=== PATIENT | female | born 1935 | race Caucasian/White ===

== ENCOUNTER 2016-06-05 13:57 | Inpatient (IN) | payer MEDICARE, OTHER ==
--- NOTE | ~2016-06-05 | CN ---
Consultation Report [facility] [address] [place]. [address] NAME: CORY ESPARZA : 33 STATUS : ADM IN PAT#: [id number] AGE: 80 ADM/REG DATE : 06/05/16 MR#: [id number] REPORT SERV DATE: 06/08/16 DICTATED BY: MELISSA NELSON DATE: 06/07/16 REPORT STATUS : Draft TRANSCRIBED BY: MODL DATE: 06/07/16 CONSULT REPORT DATE OF CONSULTATION: 06/07/2016 REASON FOR CONSULTATION: Multivessel coronary artery disease. 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 She presented to the emergency room on 06/05/2016 with complaints of dyspnea, that was sudden onset. She has a history of frequent bronchitis and thought this might be an exacerbation of that, but in the emergency room, her BNP was elevated at 1008 and troponin was mildly elevated at 0.01 which later mary kate to 0.3. She was admitted with ccn-MJ-gemuemshf MS, taken for transthoracic echocardiogram, which showed some apical hypokinesis and borderline LV function with ejection fraction estimated around 50% with what appeared to be moderate mitral regurgitation and aortic sclerosis with mild stenosis. The patient was taken for cardiac catheterization yesterday and found to have a very tight distal left main coronary artery stenosis of 80% with a filling defect suspicious for a healed dissection. She has 50% mid LAD stenosis and 40% proximal RCA stenosis with ejection fraction per cardiac catheterization around 45% with no mention of significant valvular disease. She also had a CT angiogram of her chest, which showed aneurysmal dilatation of the ascending aorta measuring up to 4.6 cm. Since her admission, she has been bradycardic with what appears to be compensatory pauses, which caused her heart rate to drop frequently into the high 20s. She is not symptomatic with this and otherwise has no complaints of chest pain or shortness of breath while at rest. PAST MEDICAL HISTORY: Bradycardia, hypertension, rheumatoid arthritis, multiple DVTs, recurrent bronchitis, and AAA. SOCIAL HISTORY: She is , with grown children. She is retired sales representative jewelry. She is fairly inactive secondary to rheumatoid arthritis. She says that, she does not walk well. Denies history of alcohol abuse, use of illicit drugs, or tobacco. FAMILY HISTORY: Reviewed and noncontributory. ALLERGIES: SHE IS ALLERGIC TO LEVOFLOXACIN. HOME MEDICATIONS: Amlodipine 10 mg p.o. daily, aspirin 81 mg p.o. daily, clonidine 0.1 mg p.r.n., Pepcid 20 mg p.o. daily, fentanyl patch 1 patch q.72 hours, Breo Ellipta 100/25 one puff inhaled daily, folic acid 1 mg p.o. daily, furosemide 40 mg p.o. daily, hydrocodone 10/325 one tab p.o. q.6 hours as needed, Plaquenil 400 mg p.o. daily, Atrovent nasal spray two sprays nasally daily, lisinopril 40 mg p.o. daily, Ativan 1 mg p.o. at bedtime, methotrexate 0.6 mL subcu Saturdays, Ditropan 5 mg p.o. daily, Paxil 80 mg p.o. daily, MiraLAX one packet p.o. daily as needed for constipation, Deltasone 5 mg p.o. daily, Risperdal 0.5 mg p.o. at bedtime, and Xarelto 20 mg p.o. daily with supper. Consultation Report [address] [place]. [address] NAME: CORY ESPARZA : 33 STATUS : ADM IN [facility]#: [id number] AGE: 80 ADM/REG DATE : 06/05/16 MR#: [id number] REPORT SERV DATE: 06/08/16 DICTATED BY: MELISSA NELSON DATE: 06/07/16 REPORT STATUS : Draft TRANSCRIBED BY: LUÍS DATE: 06/07/16 REVIEW OF SYSTEMS: A 10-point review of systems was obtained and is negative other than HPI. PHYSICAL EXAMINATION: VITAL SIGNS: From today, temperature 97.9, heart rate 63 with frequent compensatory pauses, blood pressure 146/71, respiratory rate 19, O2 saturation 94% on 2 L. GENERAL: Pleasant ill-appearing female, in no acute distress. HEENT: Head is normocephalic and atraumatic. Sclerae are clear. NECK: Supple. NEURO: Alert and oriented x3. Pupils exhibit PERRLA. LUNGS: Clear to auscultation bilaterally with normal effort. CARDIAC: S1, S2 with no murmurs, rubs, or gallops. Irregular bradycardic rhythm with frequent pauses. ABDOMEN: Soft, obese, and nontender with active bowel sounds. EXTREMITIES: Free of cyanosis or clubbing. She has multiple deformities and contractures to her hands bilaterally. IMAGING: EKG on 06/06/2016 showed sinus bradycardia with premature atrial complexes, left anterior fascicular block. CT angiogram of the chest on 06/05/2016 showed no evidence of pulmonary emboli, aneurysmal dilatation of the ascending aorta measuring 4.6 cm, transversely small effusions with bibasilar atelectasis, thickened septa and peribronchial cuffing consistent with interstitial edema. LABORATORY DATA: White blood cell count 9.5, hemoglobin 11.4, hematocrit 36.3, platelets 199. Sodium 142, potassium 4.1, chloride 105, bicarbonate 30, BUN 22, creatinine 0.8, glucose 74. ASSESSMENT AND PLAN: This is a pleasant 80-year-old female with a history of severe rheumatoid arthritis on methotrexate and prednisone. She has chronic debilitation and says that she is often confined to a better chair. She came in with shortness of breath and elevated troponin consistent with mvw-MD-azljpkvpr myocardial infarction, had elevated BNP, consistent with acute exacerbation of heart failure. She was taken for cardiac catheterization and found to have multivessel disease with tight left main coronary artery as described above. She would needed 2-3 vessel bypass. She has been on Xarelto for DVT with her last dose on 06/04/2016 with need to continue to hold the Xarelto and would likely need to come off the methotrexate for an undefined period of time. Her STS risk stratification for her and this particular surgery include an overall mortality of 5% and a morbidity mortality of 22%. I am not able to adjust calculations to consider her chronic debilitation and there was some concern that undergoing a bypass surgery in this state would cause her to be more debilitated. I discussed the risks and benefits of surgery as well as her STS risk scores and possibility of prolonged rehabilitation or group home. She is currently undecided as to whether or not she would like to pursue surgery, she would like to Consultation Report [facility] [address] [place]. [address] NAME: CORY ESPARZA : 33 STATUS : ADM IN PAT#: [id number] AGE: 80 ADM/REG DATE : 06/05/16 MR#: [id number] REPORT SERV DATE: 06/08/16 DICTATED BY: MELISSA NELSON DATE: 06/07/16 REPORT STATUS : Draft TRANSCRIBED BY: LUÍS DATE: 06/07/16 talk to her and then has asked me to return later this afternoon to discuss surgery with her. I will discuss the plan of care with Dr. Guan, and we will review the images. As for right now, we will get a carotid ultrasound and plan to continue holding Xarelto. I will allow her to continue lisinopril for now because her blood pressure is elevated and she is not able to tolerate beta-blockers due to her low heart rate. If she is willing to go through with surgery, we would hold the ARIANA inhibitor prior to proceeding. We would like to thank you for this consultation. Please let us know if we can be of further assistance. MANUEL/LUÍS Melissa Nelson NP / [id number] CC: Aviva Parada M.D.
--- NOTE | ~2016-06-05 | HP ---
History And Physical [facility] [id number] [place]. [address] NAME: CORY MEDRANO : 33 STATUS : ADM IN PAT#: [id number] AGE: 80 ADM/REG DATE : 06/05/16 MR#: [id number] REPORT SERV DATE: 06/05/16 DICTATED BY: EDGARD VEGA DATE: 06/05/16 REPORT STATUS : Draft TRANSCRIBED BY: MODL DATE: 06/05/16 DATE OF ADMISSION: 06/05/2016 Cory Medrano is an 80-year-old female, who enters through the emergency room with acute dyspnea. CVD PHYSICIAN: Edgard Vega M.D. HISTORY OF PRESENT ILLNESS: Mrs. Cory Medrano has a long history of bronchitis with recurrent events every year. She awoke this morning acutely short of breath and felt that this may be a returning bronchitis because last couple of days she felt poorly with some nausea. The breathing however was much more serious. She came to emergency room and was found to be in congestive heart failure with borderline troponin. REVIEW OF SYSTEMS: Negative for chest pain, chest discomfort, palpitations, syncope, or sleep presyncope. No history of fever, chills, productive cough, change in bowel habits, or rash. PAST MEDICAL HISTORY: 1. Hypertension for many years. 2. Rheumatoid arthritis, on methotrexate and prednisone. 3. Recurrent bronchitis. 4. Multiple DVTs, most recent one month ago, currently on Xarelto. SOCIAL HISTORY: She is a retired loan secretary. She does not drink or smoke. She is fairly inactive. FAMILY HISTORY: Negative for early heart disease. PHYSICAL EXAMINATION: VITAL SIGNS: Blood pressure is 164/92, pulse is 91. GENERAL: She is afebrile, resting comfortably . EYES: PERRLA. LUNGS: No labored use of accessory muscles. Without rales or wheezes. COR: PMI is not displaced. No thrills or heaves. NL S1 and S2. No S3, murmur, click or rub. PULSES: Carotids without bruits. ABD: +BS, nontender. EXT: No cyanosis, clubbing or edema. SKIN: No petechiae. NEURO: Alert and oriented. Does not appear anxious or depressed. LABORATORY EVALUATION: BNP is elevated at 1008, troponin is mildly elevated at 0.01. EKG shows left anterior fascicular block but otherwise is normal. ASSESSMENT: At this time, I will begin diuresis. Since she is on Xarelto, I will hold this History And Physical [address] [place] [place] [address] NAME: CORY MEDRANO : 33 STATUS : ADM IN PAT#: [id number] AGE: 80 ADM/REG DATE : 06/05/16 MR#: [id number] REPORT SERV DATE: 06/05/16 DICTATED BY: EDGARD VEGA DATE: 06/05/16 REPORT STATUS : Draft TRANSCRIBED BY: LUÍS DATE: 06/05/16 for possible catheterization, but in the morning, do a nuclear stress test for risk stratification. We will continue on aspirin holding beta elissa until after stress test. YOBANY/LUÍS Edgard Vega M.D. / [phone] CC: Aviva Parada M.D.
--- NOTE | ~2016-06-05 | OP ---
Record Of Operation [address] [place]. [address] NAME: CORY ESPARZA : 33 STATUS : ADM IN PAT#: [id number] AGE: 80 ADM/REG DATE : 06/05/16 MR#: [id number] REPORT SERV DATE: 06/09/16 DICTATED BY: ERICH LYLES DATE: 06/09/16 REPORT STATUS : Draft TRANSCRIBED BY: MODL DATE: 06/09/16 DATE OF PROCEDURE: 06/09/2016 CATHING PHYSICIAN: Bear Marsh MD PREOPERATIVE DIAGNOSES: 1. Qki-VY-vrgeeptoa myocardial infarction. 2. Left main coronary disease. 3. Hypertension. 4. Hyperlipidemia. 5. Bradycardia. 6. Rheumatoid arthritis. 7. Ascending aortic dilation. POSTOPERATIVE DIAGNOSES: 1. Vlr-FO-czabcecoe myocardial infarction. 2. Left main coronary disease. 3. Hypertension. 4. Hyperlipidemia. 5. Bradycardia. 6. Rheumatoid arthritis. 7. Ascending aortic dilation. PROCEDURE PERFORMED: 1. Median sternotomy. 2. Extracorporeal circulation. 3. Urgent coronary artery bypass grafting x2, left internal mammary artery, left anterior descending, reverse greater saphenous vein graft to obtuse marginal #1. 4. CHERYL. 5. Endoscopic vein harvest, right lower leg. 6. Prevena placement. 7. Sternal plating with [employer] SternaLock Lanre system. SURGEON: Erich Lyles MD CLIENT RELATIONSHIP MANAGER: Paige Williamson. ANESTHESIOLOGIST: Elicia Ocampo M.D. COMPLICATIONS: None. TUBES AND DRAINS: A 24-Guinean Doc to the left pleural space. A 32-Guinean straight mediastinal tube. Atrial and ventricular wires. POSTOP CONDITION: Stable to CV ICU. Record Of Operation [address] [place]. [address] NAME: CORY ESPARZA : 33 STATUS : ADM IN PAT#: [id number] AGE: 80 ADM/REG DATE : 06/05/16 MR#: [id number] REPORT SERV DATE: 06/09/16 DICTATED BY: ERICH LYLES DATE: 06/09/16 REPORT STATUS : Draft TRANSCRIBED BY: MODL DATE: 06/09/16 FINDINGS: Transesophageal echo showed mild MR. No AI. No with normal EF. Post bypass, there was preserved EF with preserved wall motion, with decreased MR. ANATOMIC FINDINGS: Ascending aorta measured approximately 4.5 to 4.6 cm. This was stable for at least the year on CT scan. Given her frail nature and general debilitation, I did not think that replacing this was appropriate. Overall, the patient had extremely fragile tissue which was probably secondary to her being on chronic steroids, methotrexate and Plaquenil. She had excellent conduit, excellent targets, excellent ventricle. Her sternum was quite osteopenic. DETAILS OF CARDIOPULMONARY BYPASS GRAFTING: Grafts: 1. Left internal mammary artery, left anterior descending was 1.75 mm target with excellent Doppler pre and post protamine. 2. Reverse greater saphenous vein graft to obtuse marginal #1. This was a 2 mm target. This target was intramyocardial. Again, there was excellent Doppler signals both pre and post protamine. DETAILS OF STERNAL PLATING: Sternal plates were placed in between the sternal wires. A #8 stainless steel sternal wires were used to close the sternum. A 180-degree plate was used with four #14 screws in the manubrium and two X plates were used on the body of the sternum with eight #14 screws. INDICATIONS FOR PROCEDURE: An 80-year-old female with history of high blood pressure, rheumatoid arthritis, on methotrexate, multiple DVTs who is on Xarelto with last dose last week. She presented to the emergency room with complaints of dyspnea of sudden onset. She was found to have a mildly elevated troponin, underwent heart catheterization, which revealed a very profound distal left main. Transesophageal echo showed apical hypokinesis and borderline LV function with ejection fraction approximately 50% with moderate MR, aortic sclerosis with mild stenosis. She was seen; risks, benefits, and alternatives were discussed with her including but not limited to, bleeding, infection, stroke, , heart attack, need for future operations. All questions were answered. Her STS score was discussed with her, with a mortality of 5% and morbidity mortality of 22%. She desired bypass, the patient was taken to the operating room. DETAILS OF PROCEDURE: The patient was brought to the operating room and placed supine on the operating table. After satisfactory induction of general endotracheal anesthesia, she was prepped and draped in usual sterile fashion. Working simultaneously, endoscopic vein harvest was performed from the right lower extremity. As mentioned above, median sternotomy was performed. Skin and subcutaneous tissues were divided. Clavipectoral fascia was divided. The sternum was divided in the midline. Sternal retractor was placed. A Rultract retractor was then placed. The internal mammary artery was harvested in a pedicle fashion from takeoff under the subclavian vein to the bifurcation of the diaphragm. Systemic heparinization was achieved. After 3 minutes, the pedicle was clipped and divided. The bifurcation of the diaphragm was infiltrated with papaverine. The Rultract retractor was removed. A 24-Guinean Doc was placed and the left chest exteriorized. Hemostasis was obtained along the chest wall. Thymic tissue was then divided in the midline. Pericardium was opened and T'd to the diaphragm. The ascending aorta was generous approximately 4.5 cm Record Of Operation [address] [address] NAME: CORY ESPARZA ROSALINA : 33 STATUS : ADM IN PAT#: [id number] AGE: 80 ADM/REG DATE : 06/05/16 MR#: [id number] REPORT SERV DATE: 06/09/16 DICTATED BY: ERICH LYLES DATE: 06/09/16 REPORT STATUS : Draft TRANSCRIBED BY: LUÍS DATE: 06/09/16 given the patient's stability of this over her surveillance. It was decided not to address this. The ascending aorta was cannulated at the base of the innominate artery. Dual stage venous cannula was placed. Antegrade root vent cardioplegia tack was placed. The conduit was brought up and prepared for bypass. The internal mammary was brought through a wide V in the pericardium. Cardiopulmonary bypass was initiated after documentation of an adequate ACT. The targets were inspected. The obtuse marginal was felt to be intramyocardial. The LAD was appropriate size. Cross-clamp was brought up. Heart was arrested with cold antegrade cardioplegia switching the warm cold antegrade cardioplegia every 15 to 20 minutes throughout the remainder of the cross clamp. The bypass grafts were then performed as mentioned in the findings. All distal anastomoses were done with 8-0 Surgipro. The proximal anastomoses for the vein was performed with a 6-0 Prolene. Vein marker was placed. Internal mammary artery was brought through a wide V in the pericardium and anastomose to the LAD, there was excellent Doppler flow both pre and post anastomosis and at the graft. The vein graft was de-aired. The cross-clamp was removed. Atrial and ventricular pacing wires were placed. The patient was weaned from the cardiopulmonary bypass without incident. Protamine was administered. She was decannulated. All cannulation sites were oversewn with 4-0 Prolene. Hemostasis was obtained. The pericardium was loosely reapproximated over the ascending aorta and the right ventricle. The sternum was then reapproximated over a #32- Guinean chest tube. The sternum was reapproximated using stainless steel sternal wires. Small pectoral flaps were then raised and the SternaLock Lanre plates were placed as mentioned in the findings. The clavipectoral fascia was reapproximated using running #1 StrataFix. The subcutaneous tissues were closed using running #1 StrataFix and the skin and subcutaneous tissues closed using 2-0 Quill. Dry sterile dressings were placed. A Prevena was placed. She was transferred to CV ICU in critical stable condition. [facility]/MODL Erich Lyles MD / [id number] CC: MD Josue Pandya M.D. Vinay Deep Madan, MD
--- NOTE | ~2016-06-05 | OP ---
Record Of Operation [facility] [address] [place] [address] NAME: CORY ESPARZA : 33 STATUS : ADM IN PAT#: [id number] AGE: 80 ADM/REG DATE : 06/05/16 MR#: [id number] REPORT SERV DATE: 06/15/16 DICTATED BY: NAN MELLO DATE: 06/15/16 REPORT STATUS : Draft TRANSCRIBED BY: MODL DATE: 06/15/16 DATE OF PROCEDURE: 06/15/2016 Left internal jugular central venous line insertion note. INDICATION FOR PROCEDURE: Septic shock. PROCEDURE IN DETAILS: Under propofol for anesthesia which had been started by Ms. Esparza was prepped and draped in the usual sterile fashion after her family had signed informed and written consent for line insertion. An ultrasound was used to visualize the left internal jugular, which appeared patent and plump and was at about approximately 10 o'clock to the pulsatile carotid. Under longitudinal view direct visualization, a finder needle was used to aspirate dark red blood and guidewire was deployed again under direct visualization. Dilator was passed to a depth of approximately 3 cm and subsequently, a 20 cm triple lumen was advanced over the guidewire to a depth of approximately 17 cm and secured to the skin with suture material. There was positive blood flow and easy flushing at all ports, and a followup chest x-ray was requested. ESTIMATED BLOOD LOSS: Less than 1 mL. IMMEDIATE COMPLICATIONS: None. The patient tolerated the procedure well and her family was updated following completion and all questions were answered. LUCIE/LUÍS Nan Mello MD / [id number] CC: Edgard Vega M.D.
--- NOTE | ~2016-06-05 | CN ---
Consultation Report [facility] [address] [place]. [address] NAME: CORY ESPARZA : 33 STATUS : ADM IN PAT#: [id number] AGE: 80 ADM/REG DATE : 06/05/16 MR#: [id number] REPORT SERV DATE: 06/11/16 DICTATED BY: BRUCE SY DATE: 06/11/16 REPORT STATUS : Draft TRANSCRIBED BY: MODL DATE: 06/11/16 CONSULT NOTE DATE OF CONSULTATION: 06/11/2016 REASON FOR CONSULTATION: Postoperative respiratory failure. HISTORY OF PRESENT ILLNESS: The patient is an 80-year-old white female with a past medical history of hypertension, hyperlipidemia, and coronary artery disease, who is now status post coronary artery bypass grafting x2, on postop day #2 with postoperative hypoxemia. The patient was extubated the day after surgery without any issues, but has had worsening respiratory compromise since that time with increasing oxygen requirements, and now currently is on 100% Vapotherm with 40 L with saturations in the low 90s. We are consulted for assistance in management of her hypoxemia. Echocardiogram at the time of heart catheterization, coronary artery bypass grafting showed EF of 50%. She has had decreasing urine output since the time of surgery and is quite volume positive about 3 L over the last several days. Her chest x-ray shows some pulmonary edema. PAST MEDICAL HISTORY: 1. Coronary artery bypass grafting two days ago. 2. Hypertension. 3. Paroxysmal atrial fibrillation. 4. Hyperlipidemia. 5. History of DVT, on Xarelto. 6. Rheumatoid arthritis. 7. History of abdominal aortic aneurysm. HOME MEDICATIONS: See medication reconciliation form. FAMILY HISTORY: Reviewed and negative for coronary artery disease or renal disease. SOCIAL HISTORY: No tobacco, alcohol, or IV drug abuse. REVIEW OF SYSTEMS: A 10-point review of systems is negative except as mentioned in the HPI. PHYSICAL EXAMINATION: VITAL SIGNS: Temperature 98.1, heart rate 76, respiratory rate 25, blood pressure 121/60. GENERAL: No acute distress. HEENT: Pupils equal, round, and reactive to light. Extraocular movements intact. Oropharynx is clear. Moist mucous membranes. NECK: Supple. Nontender. No lymphadenopathy. No thyromegaly. No jugular venous distention. LUNGS: Coarse breath sounds bilaterally. Consultation Report [facility] [address] [place]. [address] NAME: CORY ESPARZA : 33 STATUS : ADM IN PAT#: [id number] AGE: 80 ADM/REG DATE : 06/05/16 MR#: [id number] REPORT SERV DATE: 06/11/16 DICTATED BY: BRUCE SY DATE: 06/11/16 REPORT STATUS : Draft TRANSCRIBED BY: LUÍS DATE: 06/11/16 CARDIOVASCULAR: Regular rate and rhythm. No murmurs, rubs, or gallops. ABDOMEN: Soft, nontender, nondistended. Positive bowel sounds. No hepatosplenomegaly. EXTREMITIES: No cyanosis, clubbing, or edema. NEURO: Alert and oriented x3. Cranial nerves intact. PSYCH: Mood appropriate. LABS AND IMAGING: CBC with a white count of 13,000, hemoglobin of 8. Metabolic profile with a BUN of 38, creatinine of 2.0. Chest x-ray shows some bilateral perihilar airspace disease. ABG with a pH of 7.32, pCO2 of 38, pO2 of 64 on 100% Vapotherm. ASSESSMENT AND PLAN: The patient is an 80-year-old female, who is postop day #2 from coronary artery bypass grafting surgery x2, now with postoperative respiratory failure, likely secondary to volume overload from acute renal failure. We will continue to support the patient with Vapotherm. We will progress to BiPAP if needed and then intubation if she further decompensates after that. Renal is seeing the patient, placing her on a Bumex drip. Hopefully, we will be able to diurese and avoid BiPAP or intubation. If diuresis is successful, she may require dialysis but we will defer to Nephrology. We will continue to follow the patient. I appreciate the consult. Please call with questions. FIGUEROA/LUÍS Bruce Sy MD / [id number] CC: Edgard Vega M.D. Josue Head M.D.
--- NOTE | ~2016-06-05 | CN ---
Consultation Report [facility] [address] [place]. [address] NAME: EUGENIA ESPARZA : 31 STATUS : ADM IN PAT#: [id number] AGE: 80 ADM/REG DATE : 06/05/16 MR#: [id number] REPORT SERV DATE: 06/16/16 DICTATED BY: NAN MELLO DATE: 06/15/16 REPORT STATUS : Draft TRANSCRIBED BY: MODL DATE: 06/15/16 PULMONARY CRITICAL CARE EVELYNE CURRIE RESPONSE NOTE DATE OF CONSULTATION: 06/15/2016 TIME OF CODE: 1939, arrived at 1941 hours. Evelyne Currie was called on Eugenia Esparza in CVICU bed 4 at 1938 hours. Evidently, she recently had been transferred from the floor for suspected evolution of urosepsis and some nausea and vomiting with constipation. Nursing staff reports that her last set of vitals were 115/58 and pulse of 56 with a bradycardic rhythm on the monitor at 1938 hours, and she then progressed asystole with absent pulse or blood pressure at 1939 hours. ACLS was initiated and she was intubated by Dr. Mccullough from Anesthesia. Please see his separate documentation for details. She also received 1 amp of bicarb and 1 amp of calcium during her first two minutes of ACLS. On followup pulse check at 1942 hours she remained in asystole and another epinephrine was given and compressions were continued. She also received another amp of bicarb. On next pulse check at 1945 hours, she had a blood pressure of 231/91, heart rate of 108 with sinus tach on the monitor. ROSC was called, and she was connected to the ventilator. Dr. Mccullough had placed an arterial line femorally on the right, and she was started on Levophed. Left internal jugular line was also placed. Please see separate procedure note. After return of spontaneous circulation, we continue to titrate vasopressors and make frequent ventilator adjustments over the course of the next hour, and she was found to have fairly profound metabolic acidosis which was treated with additional amps of bicarbonate. She had receive cefepime on the floor and with a loading dose of 1500 mg. her family was updated twice during her code event and subsequent critical care time including and son and all questions were answered. I did also communicate with Dr. Erich Guan by telephone with regard to her care and discussed the case at the bedside with Dr. Mccullough from Anesthesia. Please see handwritten progress notes for additional details. Approximately 62 minutes of critical care time in addition to code blue and central line placement time. LUCIE/LUÍS Nan Mello MD / [id number] CC: Edgard Vega M.D.
--- NOTE | ~2016-06-05 | DS ---
Discharge Summary [facility] [address] [place]. [address] NAME: CORY ESPARZA : 33 STATUS : DIS IN PAT#: [id number] AGE: 80 ADM/REG DATE : 06/05/16 MR#: [id number] REPORT SERV DATE: 06/28/16 DICTATED BY: EDGARD DUNCAN DATE: 06/27/16 REPORT STATUS : Draft TRANSCRIBED BY: MODCecy DATE: 06/27/16 Data Collection from hospitalization DISCHARGE DIAGNOSES: 1. Coronary artery disease status post coronary artery bypass grafting. 2. History of deep venous thrombosis. 3. Respiratory failure. 4. Atrial fibrillation. 5. Hyperlipidemia. 6. Hypertension. 7. Rheumatoid arthritis. 8. History of recurrent bronchitis. CONSULTATIONS: Jericho Hewitt NP; Dr. Jericho Campa; Dr. Mahamed Sy; Dr. Yasmine Johnson. PROCEDURES PERFORMED: 1. Cardiac catheterization, 06/06/2016. 2. Median sternotomy, extracorporeal circulation, urgent coronary artery bypass grafting x2 with PATEL to the LAD, reverse greater saphenous vein graft to the obtuse marginal #1, transesophageal echocardiogram. 3. Endoscopic vein harvest from the right lower extremity, Prevena placement, sternal plating with [employer] SternalLock Blue System, 06/09/2016. 4. Left internal jugular central venous line insertion, 06/15/2016. 5. CTA of the chest, 06/05/2016. 6. Carotid blood flow study, 06/07/2016. 7. Vein mapping of the bilateral lower extremities, 06/08/2016. 8. Myocardial perfusion imaging study was performed, 06/06/2016. DISPOSITION: [employer] Home. HOSPITAL COURSE: This is an 80-year-old female, who presented to the emergency room with acute dyspnea. The patient has a long history of bronchitis with recurrent events every year. She awoke on the morning of this admission acutely short of breath and felt that this may be returning bronchitis because last couple of days, she felt poorly and had some nausea. The breathing, however, was much more serious. She came to the emergency room and was found to be in congestive heart failure with borderline troponin. She was admitted to the hospital at this time for further evaluation and treatment. Upon admission, BNP was elevated at 1008, troponin was mildly elevated at 0.01. EKG showed left anterior fascicular block, but was otherwise normal. Diuresis was begun. Xarelto was held. It was felt that she may need to undergo cardiac catheterization. Aspirin was continued. Beta-elissa would be held until after stress test. The following day, a myocardial perfusion imaging study was performed. The patient was unable to exercise and at rest, there was significant pauses present. It was felt that we may need to consider arteriograph. She did have some shortness of breath that morning. A CTA of the chest had been performed. The patient was taken to the cardiac medical laboratory scientist, where she underwent the above-mentioned procedure. She tolerated this well and there were no complications. Discharge Summary [facility] [id number] [place]. [address] NAME: CORY ESPARZA : 33 STATUS : DIS IN PAT#: [id number] AGE: 80 ADM/REG DATE : 06/05/16 MR#: [id number] REPORT SERV DATE: 06/28/16 DICTATED BY: EDGARD DUNCAN DATE: 06/27/16 REPORT STATUS : Draft TRANSCRIBED BY: LUÍS DATE: 06/27/16 Following this, she was seen by Jericho Hewitt, regarding multivessel coronary artery disease. Cardiac catheterization revealed very tight distal left main coronary artery stenosis of 80% with a filling defect suspicious for healed dissection. She has 60% mid LAD stenosis and 40% proximal RCA stenosis with ejection fraction by cardiac catheterization around 45% with no mention of significant valvular disease. CTA of the chest showed aneurysmal dilatation of the ascending aorta, measuring up to 4.6 cm. Since admission, she has been bradycardic with what appeared to be compensatory pauses, which caused her heart rate to drop frequently into the high 20s. She was not symptomatic with this. Otherwise, she had no complaints of chest pain or shortness of breath while at rest. The patient was currently undecided as to whether or not she would like to pursue surgery. Xarelto remained on hold. On 06/08/2015, a carotid blood flow study was performed. The patient had discussed her situation with her family and they were agreeable to proceed with coronary artery bypass grafting. The next day, she had no new issues. Plaquenil was going to be held prior to surgery. She had no new complaints. She was up sitting in a chair. Her lungs were clear with normal effort. Vein mapping of the bilateral lower extremities was performed. On 06/09/2016, she was taken to the operating room, where she underwent the above-mentioned procedure. She tolerated this well and there were no complications. On postop day #1, we encouraged her to increase her activity. She states her pain was tolerable. She was performing deep breathing and coughing. Blood pressure was controlled. On 06/11/2016, she was felt to be severely volume overloaded and she had poor urine output. Creatinine level had increased. She had poor oxygenation on Vapotherm. Her chest tubes were removed. She was seen by Dr. Jericho Campa regarding acute kidney injury with volume overload after bypass surgery. Creatinine level was 2.0. Chest x-ray showed bilateral edema. White blood cell count was 13,600. It was felt that more than likely, she had developed acute tubular necrosis related to her surgery resulting from renal hypoperfusion. ARIANA inhibitor was on hold. Diuril and Bumex drip were continued. We were hopeful that we could avoid dialysis. We would avoid nephrotoxic medication. She was seen by Dr. Mahamed Sy regarding postoperative respiratory failure. She had developed worsening respiratory compromise with increasing oxygen requirements. She was now currently on 100% Vapotherm with 40 L with saturations in the low 90s. Chest x-ray showed some bilateral perihilar airspace disease. It was felt that postoperative respiratory failure was likely secondary to volume overload from acute renal failure. We were continued for the patient with Vapotherm. We would progress to bypass if needed and then intubation if she further decompensated. We hoped we would be able to diurese and avoid BiPAP or intubation. If diuresis was successful, she may require dialysis, but we would defer this to Nephrology. On 06/12/2016, she was up sitting in a chair. She did complain of leg and sternal pain. She did have some shortness of breath. She had shallow inspirations. Diuresis continued. Renal function had worsened. She was felt to likely have postop ATN. ARIANA inhibitor was on hold. Vapotherm was being weaned as tolerated. The next day, she had rhonchi in both lungs. She had trace edema. Renal function remained stable at this time. She was very weak, but was able to sit up in a chair. Blood pressure was controlled. Chronic steroids were continued for her rheumatoid arthritis. She was evaluated by Occupational and Physical Therapy. On 06/14/2016, she had rhonchi in both lungs. She was suspected to have postop ATN. Bumex drip was stopped. ARIANA inhibitor remained on hold. Prednisone had been resumed. Creatinine Discharge Summary [facility] [address] [place]. [address] NAME: CORY ESPARZA : 33 STATUS : DIS IN PAT#: [id number] AGE: 80 ADM/REG DATE : 06/05/16 MR#: [id number] REPORT SERV DATE: 06/28/16 DICTATED BY: EDGARD DUNCAN DATE: 06/27/16 REPORT STATUS : Draft TRANSCRIBED BY: MODL DATE: 06/27/16 level was improving and was now 2.10. She was in atrial fibrillation. Her white count was 24.6, creatinine was 2.04. She had difficulty mobilizing. She had some nausea and abdominal tenderness. Her white count had increased to 24.6. She became poorly responsive. Later that evening, she was seen by Dr. Yasmine Johnson. A code Blue was called. She had recently been transferred from the floor for suspected evolution of urosepsis and some nausea and vomiting with constipation. ACLS was initiated and she was intubated. A left internal jugular line was placed. An arterial line femorally on the right. She has been started on Levophed. She was found to have fairly profound metabolic acidosis. Antibiotics were continued as she appeared septic from her urinary tract infection. A PICC line was inserted. On 06/16/2016, she had increased mottling of her legs. She had decreased cardiac contractility on surface echo. There was no hemodynamically significant pericardial effusion. DNR code status was going to be recommended to her family. She was felt to have poor chance for meaningful success with ACLS. A long discussion was held with her son by phone regarding the patient's situation and ongoing rapid deterioration. It was agreed that ACLS/shock/CPR was futile. Her family wanted to withhold any further treatments. Her condition continued to decline. The patient was found without blood pressure, pulse, or respirations and was pronounced. She was released to the above- mentioned home. Information collected by: Cherrie Wright I submit the above information as my discharge summary. TG/MODCecy Edgard Duncan M.D. / [id number] CC: Aviva Parada M.D. Nathan S. Woody, NP Nathan Chamberlain, M.D.
--- NOTE | ~2016-06-05 | CN ---
Consultation Report [facility] [address] [place]. [address] NAME: CORY ESPARZA : 33 STATUS : ADM IN PAT#: [id number] AGE: 80 ADM/REG DATE : 06/05/16 MR#: [id number] REPORT SERV DATE: 06/11/16 DICTATED BY: MELISSA BARNETT DATE: 06/11/16 REPORT STATUS : Draft TRANSCRIBED BY: MODL DATE: 06/11/16 NEPHROLOGY CONSULTATION DATE OF CONSULTATION: 06/11/2016 REASON FOR CONSULTATION: Acute kidney injury with volume overload after bypass surgery. HISTORY OF PRESENT ILLNESS: Ms. Esparza was admitted on 06/05 and underwent cardiac catheterization on 06/06, at which time creatinine was 0.8. Echocardiogram has shown an EF of 50%. On 06/09, creatinine was 0.8, at which time she underwent CABG x2. She is extubated and in the CVICU. Her creatinine yesterday was again 0.8. Over the last 24-48 hours, she has had increasing oxygen requirements and today is on Vapotherm at 40 L. Her creatinine today is 2.0 with CVP of 16. In the last 24 hours, she has had 2974 mL of intake with 590 mL of urine output. She has been resistant to multiple intermittent doses of IV loop diuretics. Chest x-ray today shows bilateral edema and ABG shows pH 7.32, PaCO2 of 38, PaO2 of 64. Critical Care was consulted earlier this morning. PAST MEDICAL HISTORY: 1. Postop day two, CABG x2, EF 50%, RVSP 33 mmHg. 2. Hypertension, on ARIANA inhibitor. 3. Paroxysmal atrial fibrillation. 4. Hyperlipidemia. 5. History of DVTs, on Xarelto. 6. Rheumatoid arthritis, on steroids, methotrexate, and Plaquenil. 7. Recent diagnosis of abdominal aortic aneurysm this admission. CURRENT MEDICATIONS: Amiodarone, vitamin C, aspirin, Lipitor, Pepcid, Duragesic patch, folic acid, Plaquenil, sliding scale insulin, nitro paste, Ditropan, Paxil, prednisone, Risperdal, and zinc. FAMILY HISTORY: No ESRD. SOCIAL HISTORY: She is . Retired. Lives in [place], [place]. Nonsmoker. REVIEW OF SYSTEMS: Please see HPI for pertinent details. PHYSICAL EXAMINATION: VITAL SIGNS: Temperature 97.8, pulse 79, respirations 24, blood pressure 135/70, 91% sat on 40 L of Vapotherm. GENERAL: This is a pleasant, elderly white female, in mild distress. She is awake, alert, oriented, cooperative with the exam and is a good historian. HEENT: Sclerae without icterus. Conjunctivae not injected. Oropharynx is clear. She has diffuse bilateral rhonchi with dyspnea noted. Consultation Report [address] [address] NAME: CORY ESPARZA : 33 STATUS : ADM IN PAT#: [id number] AGE: 80 ADM/REG DATE : 06/05/16 MR#: [id number] REPORT SERV DATE: 06/11/16 DICTATED BY: MELISSA BARNETT DATE: 06/11/16 REPORT STATUS : Draft TRANSCRIBED BY: LUÍS DATE: 06/11/16 NECK: JVD is 10-12 cm. HJR is positive. HEART: She has irregular heart rhythm with controlled rate. A 2/6 murmur. Sternal incisions are bandaged, clean, dry, and intact. ABDOMEN: Obese, soft, nontender, nondistended. Bowel sounds present throughout without rebound, guarding, or peritoneal signs. She has 1+ bilateral edema. NEURO: Grossly nonfocal. SKIN: Shows no rash with diffuse chronic ecchymoses and bruising. She has two chest tubes in place. Urine output is noted in the Rosen catheter. MUSCULOSKELETAL: Shows chronic rheumatoid arthritis, but no active gout. NEURO: Grossly nonfocal. Mood and affect are anxious. LABORATORY DATA: Sodium 137, potassium 4.5, bicarb 22, BUN 38, creatinine 2, GFR 22 mL/minute, calcium 8.1, magnesium 2.3. White count 13,600; hemoglobin 8.2; platelets 135,000. No eosinophils noted on the differential. ASSESSMENT AND PLAN: Ms. Esparza has developed nonoliguric acute kidney injury, postop day two CABG x2, EF 50%, atrial fibrillation, rheumatoid arthritis, history of deep vein thromboses, abdominal aortic aneurysm, anemia, elevated white count, and volume overload with pulmonary edema and hypoxia. More than likely, she has developed acute tubular necrosis related to her surgery resulting from renal hypoperfusion. ARIANA inhibitor is on hold. Intake greater than output with elevated CVP. We will diurese with Diuril and Bumex drip. Hopefully, dialysis can be avoided. Supportive care. Watch labs. Avoid nephrotoxic medications. Hopefully, she will improve with the above measures, and BiPAP/intubation may not be required. We will follow closely with you. Appreciate consult. NC/MODL Melissa Barnett M.D. / [id number] CC: Edgard Vega M.D. Josue Head M.D.
[2016-06-05 11:10] LABS: BASOPHILS 0.1 %; BASOPHILS ABSOLUTE 0.01 10/3/uL (0.0-0.16); EOSINOPHILS ABSOLUTE 0.21 10/3/uL (0.0-0.53); HEMOGLOBIN 11.6 g/dL (12.0-16.0); IMMATURE GRANULOCYTES 0.4 %; IMMATURE GRANULOCYTES ABSOLUTE 0.04 10/3/uL (0.0-0.11); LYMPHOCYTES 7.8 %; LYMPHOCYTES ABSOLUTE 0.82 10/3/uL (0.67-4.30); MEAN CORPUS HGB CONC 32.2 g/dL (32.0-36.0); MEAN CORPUSCULAR HEMOGLOB 31.3 pg (26.0-34.0); MONOCYTES 6.9 %; MONOCYTES ABSOLUTE 0.73 10/3/uL (0.21-1.20); NEUTROPHILS 82.8 %; NEUTROPHILS ABSOLUTE 8.76 10/3/uL (2.02-8.40); PLATELET COUNT 164 10/3/uL (150-400); RBC DISTRIBUTION WIDTH 16.9 % (12.0-16.0); RED CELL COUNT 3.71 10/6/uL (4.0-5.6)
[2016-06-05 11:11] LABS: ER CBC TAT 0 Hrs 05 Mins; MANUAL DIFF NO %; WHITE BLOOD CELLS 10.6 10/3/uL (4.5-10.5)
[2016-06-05 11:18] LABS: PARTIAL THROMBO TIME 28.5 SEC (22.5-37.2)
[2016-06-05 11:19] LABS: INTERNATIONAL NORMAL RATI 1.2 UNITS (-); PROTIME (NOT ORD) 15.5 SEC (12.0-14.5)
[2016-06-05 11:22] LABS: D-DIMER QUANTITATIVE 0.48 ug/mLFEU (< 0.50)
[2016-06-05 11:26] LABS: BUN (BLOOD UREA NITROGEN) 12 MG/DL (6-23); CALCIUM, SERUM 8.6 MG/DL (8.5-10.4); CHLORIDE, SERUM 103 MMOL/L (96-112); CO2 (CARBON DIOXIDE) 32 MMOL/L (24-34); CREATININE 0.87 MG/DL (0.55-1.02); GFR AFRICAN AMERICAN 72 ML/MIN (>=60); GFR NON AFRICAN AMERICAN 62 ML/MIN (>=60); GLUCOSE, SERUM 111 MG/DL (60-99); POTASSIUM, SERUM 3.9 MMOL/L (3.5-5.3); SODIUM, SERUM 142 MMOL/L (135-148)
[2016-06-05 11:32] LABS: CHEST PAIN PROFILE TAT 0 Hrs 26 Mins
[2016-06-05 12:54] LABS: ASCORBIC ACID (UR NOT ORDER) 40 (NEG); BILIRUBIN, URINE NEGATIVE (NEG); ER URINALYSIS TAT 0 Hrs 07 Mins; KETONE, URINE NEGATIVE (NEG); LEUKOCYTE ESTERASE(NOT OR TRACE (NEG); NITRITE (URINE) NEG (NEG); WBC (NOT ORDERED) (RFLEX) 3 (0-5)
[~2016-06-05 13:57] MED LIST: ABILIFY5 PO; ACTONEL; ASAB PO; ATV1 PO; AZO-CRANBERY450 MG OR; CALTRA600D PO; CAT1 PO; CO-Q-10 PO; CYMBALTA30 PO; DITRO5 PO; DURA50 TOP; FOLIC PO; KLONO5 PO; KLONOPIN; L40 PO; LISINOPRIL40 MG PO; LORT7 PO; MELATONIN1 M1 PO; METAMUCIL CAN7 OZ PO; METHOTREXATE25 MG/ML; MULTIPLE VIT PO; NORV10 PO; NORV5 PO; NORVASC; P5 PO; PAXIL40 MG PO; PLAQ200B PO; PRILO PO; RISP0.5 PO; RISP1 PO; SYN88 PO; VENTOLIN HFA INH; VITAMIN B-2100 MG PO
[2016-06-05] MEDS ORDERED: DURA50 TOP (14:09)
[2016-06-05] MEDS ORDERED: HALF81 PO (14:09)
[2016-06-05] MEDS ORDERED: NORV10 PO (14:09)
[2016-06-05] MEDS ORDERED: CAT1 PO (14:09)
[2016-06-05] MEDS ORDERED: FOLIC PO (14:09)
[2016-06-05] MEDS ORDERED: ATRONASAL6 NAS (14:10)
[2016-06-05] MEDS ORDERED: RISP0.5 PO (14:10)
[2016-06-05] MEDS ORDERED: L40 PO (14:10)
[2016-06-05] MEDS ORDERED: ATV1 PO (14:14)
[2016-06-05] MEDS ORDERED: LISINOPRIL40 MG PO (14:14)
[2016-06-05] MEDS ORDERED: MTX50 SC (14:15)
[2016-06-05] MEDS ORDERED: XARELTO20 MG PO (14:15)
[2016-06-05] MEDS ORDERED: NORCO1 TAB PO (14:15)
[2016-06-05] MEDS ORDERED: MIRALAX POWDER1 PKT PO (14:16)
[2016-06-05] MEDS ORDERED: DITRO5 PO (14:16)
[2016-06-05] MEDS ORDERED: PAXIL40 MG PO (14:16)
[2016-06-05] MEDS ORDERED: PLAQ200B PO (14:16)
[2016-06-05] MEDS ORDERED: PEP20 PO (14:16)
[2016-06-05] MEDS ORDERED: P5 PO (14:16)
[2016-06-05] MEDS ORDERED: BREO ELLIPTA INH (14:17)
[2016-06-06 06:46] LABS: BASOPHILS 0 %; EOSINOPHILS 0 %; HEMOGLOBIN 10.1 g/dL (12.0-16.0); LYMPHOCYTES 7.1 %; LYMPHOCYTES ABSOLUTE 0.53 10/3/uL (0.67-4.30); MEAN CORPUS HGB CONC 31.8 g/dL (32.0-36.0); MEAN CORPUSCULAR HEMOGLOB 29.8 pg (26.0-34.0); MEAN PLATELET VOLUME 8.9 fL (9.2-13.0); MONOCYTES 7.1 %; MONOCYTES ABSOLUTE 0.53 10/3/uL (0.21-1.20); NEUTROPHILS 85.8 %; NEUTROPHILS ABSOLUTE 6.45 10/3/uL (2.02-8.40); PLATELET COUNT 149 10/3/uL (150-400); RBC DISTRIBUTION WIDTH 17.1 % (12.0-16.0); RED CELL COUNT 3.39 10/6/uL (4.0-5.6); WHITE BLOOD CELLS 7.5 10/3/uL (4.5-10.5)
[2016-06-06 06:54] LABS: HEMATOCRIT 31.8 % (36.0-48.0); MANUAL DIFF NO %; MEAN CORPUSCULAR VOLUME 93.8 fL (80-100)
[2016-06-06 07:05] LABS: CHOL/HDL RATIO(NOT ORDER) 2.2 (0-5)
[2016-06-06 14:28] LABS: HEMATOCRIT 36.3 % (36.0-48.0); HEMOGLOBIN 11.4 g/dL (12.0-16.0); MANUAL DIFF YES %; MEAN CORPUS HGB CONC 31.4 g/dL (32.0-36.0); MEAN CORPUSCULAR HEMOGLOB 29.6 pg (26.0-34.0); MEAN CORPUSCULAR VOLUME 94.3 fL (80-100); MEAN PLATELET VOLUME 9.7 fL (9.2-13.0); PLATELET COUNT 199 10/3/uL (150-400); RBC DISTRIBUTION WIDTH 17.2 % (12.0-16.0); RED CELL COUNT 3.85 10/6/uL (4.0-5.6); WHITE BLOOD CELLS 9.5 10/3/uL (4.5-10.5)
[2016-06-06 14:34] LABS: INTERNATIONAL NORMAL RATI 1.2 UNITS (-); PROTIME (NOT ORD) 14.8 SEC (12.0-14.5)
[2016-06-06 14:43] LABS: CALCIUM, SERUM 8.8 MG/DL (8.5-10.4); CHLORIDE, SERUM 102 MMOL/L (96-112); CHOL/HDL RATIO(NOT ORDER) 2.3 (0-5); CHOLESTEROL 182 MG/DL (< 200); CO2 (CARBON DIOXIDE) 31 MMOL/L (24-34); CREATININE 0.79 MG/DL (0.55-1.02); GFR AFRICAN AMERICAN 81 ML/MIN (>=60); GFR NON AFRICAN AMERICAN 70 ML/MIN (>=60); GLUCOSE, SERUM 90 MG/DL (60-99); HDL CHOLESTEROL 80 MG/DL (> 49); LDL CHOLESTEROL 87 MG/DL (< 130); NON-HDL CHOLESTEROL 102 MG/DL (< 160); POTASSIUM, SERUM 4.2 MMOL/L (3.5-5.3); SODIUM, SERUM 141 MMOL/L (135-148)
[2016-06-06 14:44] LABS: BUN (BLOOD UREA NITROGEN) 19 MG/DL (6-23); TRIGLYCERIDE 78 MG/DL (< 150)
[2016-06-06 14:59] LABS: ANISOCYTOSIS 1+ (5-10/OIF) (0-5/OIF); LYMPHOCYTES 7 %; LYMPHOCYTES ABSOLUTE (CALC) 0.67 10/3/uL (0.67-4.30); MACROCYTES 1+ (5-10/OIF) (0-5/OIF); MONOCYTES 8 %; MONOCYTES ABSOLUTE (CALC) 0.76 10/3/uL (0.21-1.20); NEUTROPHILS ABSOLUTE (CALC) 8.08 10/3/uL (2.02-8.40); PLATELET ESTIMATE ADQ (ADEQUATE); SEGMENTED NEUTROPHIL (0) 85 %; TOTAL NUCLEATED CELLS 100
[2016-06-07 04:22] LABS: CHOL/HDL RATIO(NOT ORDER) 2.6 (0-5); CHOLESTEROL 166 MG/DL (< 200); HDL CHOLESTEROL 64 MG/DL (> 49); LDL CHOLESTEROL 87 MG/DL (< 130); NON-HDL CHOLESTEROL 102 MG/DL (< 160); TRIGLYCERIDE 77 MG/DL (< 150)
[2016-06-07 05:38] LABS: BUN (BLOOD UREA NITROGEN) 22 MG/DL (6-23); CALCIUM, SERUM 8.4 MG/DL (8.5-10.4); CHLORIDE, SERUM 105 MMOL/L (96-112); CO2 (CARBON DIOXIDE) 30 MMOL/L (24-34); CREATININE 0.85 MG/DL (0.55-1.02); GFR AFRICAN AMERICAN 74 ML/MIN (>=60); GFR NON AFRICAN AMERICAN 64 ML/MIN (>=60); GLUCOSE, SERUM 74 MG/DL (60-99); POTASSIUM, SERUM 4.1 MMOL/L (3.5-5.3); SODIUM, SERUM 142 MMOL/L (135-148)
[2016-06-07 07:45] LABS: PHOSPHORUS, SERUM 3.1 MG/DL (2.5-4.5)
[2016-06-08 04:42] LABS: BASOPHILS 0.2 %; BASOPHILS ABSOLUTE 0.01 10/3/uL (0.0-0.16); EOSINOPHILS 3.4 %; EOSINOPHILS ABSOLUTE 0.19 10/3/uL (0.0-0.53); HEMATOCRIT 35.9 % (36.0-48.0); HEMOGLOBIN 11.4 g/dL (12.0-16.0); IMMATURE GRANULOCYTES 0.4 %; IMMATURE GRANULOCYTES ABSOLUTE 0.02 10/3/uL (0.0-0.11); LYMPHOCYTES 14.6 %; LYMPHOCYTES ABSOLUTE 0.81 10/3/uL (0.67-4.30); MEAN CORPUS HGB CONC 31.8 g/dL (32.0-36.0); MEAN CORPUSCULAR HEMOGLOB 30.5 pg (26.0-34.0); MEAN PLATELET VOLUME 9.2 fL (9.2-13.0); MONOCYTES 11.9 %; MONOCYTES ABSOLUTE 0.66 10/3/uL (0.21-1.20); NEUTROPHILS 69.5 %; NEUTROPHILS ABSOLUTE 3.86 10/3/uL (2.02-8.40); PLATELET COUNT 175 10/3/uL (150-400); RBC DISTRIBUTION WIDTH 16.6 % (12.0-16.0); RED CELL COUNT 3.74 10/6/uL (4.0-5.6)
[2016-06-08 04:48] LABS: MANUAL DIFF NO %; WHITE BLOOD CELLS 5.6 10/3/uL (4.5-10.5)
[2016-06-08 08:23] LABS: ASCORBIC ACID (UR NOT ORDER) NEG (NEG); BILIRUBIN, URINE NEGATIVE (NEG); KETONE, URINE NEGATIVE (NEG); LEUKOCYTE ESTERASE(NOT OR NEG (NEG); WBC (NOT ORDERED) (RFLEX) 1 (0-5)
[2016-06-09 04:07] LABS: BASOPHILS 0.2 %; BASOPHILS ABSOLUTE 0.01 10/3/uL (0.0-0.16); EOSINOPHILS 3.1 %; EOSINOPHILS ABSOLUTE 0.18 10/3/uL (0.0-0.53); HEMATOCRIT 36.5 % (36.0-48.0); HEMOGLOBIN 11.7 g/dL (12.0-16.0); IMMATURE GRANULOCYTES 0.5 %; IMMATURE GRANULOCYTES ABSOLUTE 0.03 10/3/uL (0.0-0.11); LYMPHOCYTES ABSOLUTE 0.69 10/3/uL (0.67-4.30); MEAN CORPUS HGB CONC 32.1 g/dL (32.0-36.0); MEAN CORPUSCULAR HEMOGLOB 30.4 pg (26.0-34.0); MEAN CORPUSCULAR VOLUME 94.8 fL (80-100); MEAN PLATELET VOLUME 9.5 fL (9.2-13.0); MONOCYTES 11.7 %; MONOCYTES ABSOLUTE 0.67 10/3/uL (0.21-1.20); NEUTROPHILS 72.5 %; NEUTROPHILS ABSOLUTE 4.17 10/3/uL (2.02-8.40); PLATELET COUNT 193 10/3/uL (150-400); RBC DISTRIBUTION WIDTH 16.7 % (12.0-16.0); RED CELL COUNT 3.85 10/6/uL (4.0-5.6); WHITE BLOOD CELLS 5.8 10/3/uL (4.5-10.5)
[2016-06-09 04:09] LABS: MANUAL DIFF NO %
[2016-06-09 04:11] LABS: INTERNATIONAL NORMAL RATI 1.2 UNITS (-); PROTIME (NOT ORD) 15.2 SEC (12.0-14.5)
[2016-06-09 04:23] LABS: % IRON SAT 10 % (20-50); ALBUMIN 3.2 G/DL (3.5-5.0); CALCIUM, SERUM 8.6 MG/DL (8.5-10.4); CHLORIDE, SERUM 105 MMOL/L (96-112); CO2 (CARBON DIOXIDE) 29 MMOL/L (24-34); CREATININE 0.79 MG/DL (0.55-1.02); GFR AFRICAN AMERICAN 81 ML/MIN (>=60); GFR NON AFRICAN AMERICAN 70 ML/MIN (>=60); GLOBULIN 3.2 G/DL (2.5-4.1); IRON BINDING CAPACITY 286 MCG/DL (225-410); IRON, SERUM 28 MCG/DL (35-150); POTASSIUM, SERUM 4.9 MMOL/L (3.5-5.3); SGOT(AST) 25 U/L (5-40); SGPT(ALT) 20 U/L (5-65); SODIUM, SERUM 142 MMOL/L (135-148); TOTAL BILIRUBIN 0.5 MG/DL (0-1.2); TOTAL PROTEIN 6.4 G/DL (6.0-8.5)
[2016-06-09 04:25] LABS: ALKALINE PHOSPHATASE 58 U/L (45-117); BUN (BLOOD UREA NITROGEN) 17 MG/DL (6-23); GLUCOSE, SERUM 104 MG/DL (60-99)
[2016-06-09 13:34] LABS: BE (BASE EXCESS) -0.4 MEQ/L (0 +/- 2.5); CARBOXYHEMOGLOBIN 0.2 % (0-3); HCO3 (ACTUAL BICARBONATE) 24.6 MEQ/L (23-27); HEMOBLOGIN CONTENT 10.1 G/DL (12-16); INSTRUMENT SERIAL # 11843; METHEMOGLOBIN 0.5 % (0-3); MODE SIMV; O2 CONTENT 14.1 VOL% (18-24); OPERATOR ID 18642; PCO2 (CO2 TENSION) 42 MMHG (35-45); PO2 (O2 TENSION) 151 MMHG (79-93); PRESSURE SUPPORT 0 cm.H2O; SAMPLE Arterial; TIDAL VOLUME 550 ML; pH 7.39 (7.37-7.43)
[2016-06-09 13:49] LABS: HEMOGLOBIN 9.4 g/dL (12.0-16.0); PLATELET COUNT 147 10/3/uL (150-400)
[2016-06-09 13:52] LABS: HEMATOCRIT 29.9 % (36.0-48.0)
[2016-06-09 13:55] LABS: INTERNATIONAL NORMAL RATI 1.5 UNITS (-)
[2016-06-09 13:56] LABS: PROTIME (NOT ORD) 17.8 SEC (12.0-14.5)
[2016-06-09 14:01] LABS: BUN (BLOOD UREA NITROGEN) 17 MG/DL (6-23); CALCIUM, SERUM 9.9 MG/DL (8.5-10.4); CHLORIDE, SERUM 112 MMOL/L (96-112); CO2 (CARBON DIOXIDE) 26 MMOL/L (24-34); CREATININE 0.85 MG/DL (0.55-1.02); GFR AFRICAN AMERICAN 74 ML/MIN (>=60); GFR NON AFRICAN AMERICAN 64 ML/MIN (>=60); GLUCOSE, SERUM 131 MG/DL (60-99); POTASSIUM, SERUM 4.3 MMOL/L (3.5-5.3); SODIUM, SERUM 145 MMOL/L (135-148)
[2016-06-09 14:50] LABS: FIBRINOGEN 240 MG/DL (230-462)
[2016-06-09 20:11] LABS: BASOPHILS 0 %; EOSINOPHILS 0.1 %; EOSINOPHILS ABSOLUTE 0.01 10/3/uL (0.0-0.53); HEMATOCRIT 29.9 % (36.0-48.0); HEMOGLOBIN 9.5 g/dL (12.0-16.0); IMMATURE GRANULOCYTES 0.2 %; IMMATURE GRANULOCYTES ABSOLUTE 0.02 10/3/uL (0.0-0.11); LYMPHOCYTES 3.1 %; LYMPHOCYTES ABSOLUTE 0.29 10/3/uL (0.67-4.30); MANUAL DIFF NO %; MEAN CORPUS HGB CONC 31.8 g/dL (32.0-36.0); MEAN CORPUSCULAR HEMOGLOB 29.5 pg (26.0-34.0); MEAN CORPUSCULAR VOLUME 92.9 fL (80-100); MEAN PLATELET VOLUME 9.7 fL (9.2-13.0); MONOCYTES 1.7 %; MONOCYTES ABSOLUTE 0.16 10/3/uL (0.21-1.20); NEUTROPHILS 94.9 %; NEUTROPHILS ABSOLUTE 8.79 10/3/uL (2.02-8.40); PLATELET COUNT 144 10/3/uL (150-400); RBC DISTRIBUTION WIDTH 16.3 % (12.0-16.0); RED CELL COUNT 3.22 10/6/uL (4.0-5.6); WHITE BLOOD CELLS 9.3 10/3/uL (4.5-10.5)
[2016-06-09 20:22] LABS: BUN (BLOOD UREA NITROGEN) 20 MG/DL (6-23); CALCIUM, SERUM 8.8 MG/DL (8.5-10.4); CHLORIDE, SERUM 111 MMOL/L (96-112); CO2 (CARBON DIOXIDE) 24 MMOL/L (24-34); CREATININE 0.81 MG/DL (0.55-1.02); GFR AFRICAN AMERICAN 78 ML/MIN (>=60); GFR NON AFRICAN AMERICAN 68 ML/MIN (>=60); GLUCOSE, SERUM 113 MG/DL (60-99); POTASSIUM, SERUM 4.5 MMOL/L (3.5-5.3); SODIUM, SERUM 144 MMOL/L (135-148)
[2016-06-09 20:35] LABS: BE (BASE EXCESS) -3.5 MEQ/L (0 +/- 2.5); CARBOXYHEMOGLOBIN 0.3 % (0-3); DEVICE NC; HEMOBLOGIN CONTENT 10.2 G/DL (12-16); INSTRUMENT SERIAL # 11843; METHEMOGLOBIN 0.3 % (0-3); O2 CONTENT 13.5 VOL% (18-24); OPERATOR ID 32193; PCO2 (CO2 TENSION) 42 MMHG (35-45); PO2 (O2 TENSION) 78 MMHG (79-93); SAMPLE Arterial; pH 7.34 (7.37-7.43)
[2016-06-10 00:40] LABS: HEMATOCRIT 29.2 % (36.0-48.0); HEMOGLOBIN 9.4 g/dL (12.0-16.0)
[2016-06-10 01:32] LABS: POTASSIUM, SERUM 4.4 MMOL/L (3.5-5.3)
[2016-06-10 03:25] LABS: BASOPHILS 0 %; EOSINOPHILS 0 %; HEMATOCRIT 28.6 % (36.0-48.0); HEMOGLOBIN 9.1 g/dL (12.0-16.0); IMMATURE GRANULOCYTES 0.3 %; IMMATURE GRANULOCYTES ABSOLUTE 0.03 10/3/uL (0.0-0.11); LYMPHOCYTES 1.8 %; MEAN CORPUS HGB CONC 31.8 g/dL (32.0-36.0); MEAN CORPUSCULAR HEMOGLOB 30.1 pg (26.0-34.0); MEAN CORPUSCULAR VOLUME 94.7 fL (80-100); MEAN PLATELET VOLUME 9.3 fL (9.2-13.0); MONOCYTES ABSOLUTE 0.66 10/3/uL (0.21-1.20); NEUTROPHILS 91.9 %; NEUTROPHILS ABSOLUTE 10.16 10/3/uL (2.02-8.40); PLATELET COUNT 130 10/3/uL (150-400); RBC DISTRIBUTION WIDTH 16.5 % (12.0-16.0); RED CELL COUNT 3.02 10/6/uL (4.0-5.6); WHITE BLOOD CELLS 11.1 10/3/uL (4.5-10.5)
[2016-06-10 03:26] LABS: MANUAL DIFF NO %
[2016-06-10 03:31] LABS: INTERNATIONAL NORMAL RATI 1.3 UNITS (-); PROTIME (NOT ORD) 16.4 SEC (12.0-14.5)
[2016-06-10 03:37] LABS: BUN (BLOOD UREA NITROGEN) 22 MG/DL (6-23); CALCIUM, SERUM 8.5 MG/DL (8.5-10.4); CHLORIDE, SERUM 115 MMOL/L (96-112); CO2 (CARBON DIOXIDE) 22 MMOL/L (24-34); CREATININE 0.84 MG/DL (0.55-1.02); GFR AFRICAN AMERICAN 75 ML/MIN (>=60); GFR NON AFRICAN AMERICAN 65 ML/MIN (>=60); GLUCOSE, SERUM 98 MG/DL (60-99); POTASSIUM, SERUM 4.3 MMOL/L (3.5-5.3); SODIUM, SERUM 148 MMOL/L (135-148)
[2016-06-10 04:45] LABS: PARTIAL THROMBO TIME 29.1 SEC (22.5-37.2)
[2016-06-10 16:26] LABS: HEMATOCRIT 27.7 % (36.0-48.0); HEMOGLOBIN 8.8 g/dL (12.0-16.0)
[2016-06-10 16:35] LABS: POTASSIUM, SERUM 4.8 MMOL/L (3.5-5.3)
[2016-06-11 01:11] LABS: BASOPHILS 0 %; EOSINOPHILS 0 %; HEMOGLOBIN 8.2 g/dL (12.0-16.0); IMMATURE GRANULOCYTES 0.4 %; IMMATURE GRANULOCYTES ABSOLUTE 0.06 10/3/uL (0.0-0.11); LYMPHOCYTES ABSOLUTE 0.41 10/3/uL (0.67-4.30); MANUAL DIFF NO %; MEAN CORPUS HGB CONC 32.8 g/dL (32.0-36.0); MEAN CORPUSCULAR HEMOGLOB 30.9 pg (26.0-34.0); MEAN CORPUSCULAR VOLUME 94.3 fL (80-100); MEAN PLATELET VOLUME 9.6 fL (9.2-13.0); MONOCYTES ABSOLUTE 1.49 10/3/uL (0.21-1.20); NEUTROPHILS 85.6 %; NEUTROPHILS ABSOLUTE 11.61 10/3/uL (2.02-8.40); PLATELET COUNT 135 10/3/uL (150-400); RBC DISTRIBUTION WIDTH 17.1 % (12.0-16.0); RED CELL COUNT 2.65 10/6/uL (4.0-5.6); WHITE BLOOD CELLS 13.6 10/3/uL (4.5-10.5)
[2016-06-11 01:21] LABS: CALCIUM, SERUM 8.1 MG/DL (8.5-10.4); CO2 (CARBON DIOXIDE) 22 MMOL/L (24-34); POTASSIUM, SERUM 4.5 MMOL/L (3.5-5.3)
[2016-06-11 01:30] LABS: BUN (BLOOD UREA NITROGEN) 38 MG/DL (6-23); CHLORIDE, SERUM 103 MMOL/L (96-112); CREATININE 2.02 MG/DL (0.55-1.02); GFR AFRICAN AMERICAN 26 ML/MIN (>=60); GFR NON AFRICAN AMERICAN 22 ML/MIN (>=60); GLUCOSE, SERUM 145 MG/DL (60-99); SODIUM, SERUM 137 MMOL/L (135-148)
[2016-06-11 09:34] LABS: BE (BASE EXCESS) -6.1 MEQ/L (0 +/- 2.5); CARBOXYHEMOGLOBIN 0.3 % (0-3); HCO3 (ACTUAL BICARBONATE) 19.4 MEQ/L (23-27); HEMOBLOGIN CONTENT 9.1 G/DL (12-16); INSTRUMENT SERIAL # 11843; METHEMOGLOBIN 0.5 % (0-3); O2 CONTENT 11.5 VOL% (18-24); OPERATOR ID 18642; PCO2 (CO2 TENSION) 38 MMHG (35-45); PO2 (O2 TENSION) 64 MMHG (79-93); SAMPLE Arterial; pH 7.32 (7.37-7.43)
[2016-06-11 16:18] LABS: CALCIUM, SERUM 8.3 MG/DL (8.5-10.4); CHLORIDE, SERUM 102 MMOL/L (96-112); CO2 (CARBON DIOXIDE) 20 MMOL/L (24-34); GFR AFRICAN AMERICAN 20 ML/MIN (>=60); GFR NON AFRICAN AMERICAN 17 ML/MIN (>=60); GLUCOSE, SERUM 132 MG/DL (60-99); POTASSIUM, SERUM 4.7 MMOL/L (3.5-5.3); SODIUM, SERUM 134 MMOL/L (135-148)
[2016-06-11 16:21] LABS: BUN (BLOOD UREA NITROGEN) 50 MG/DL (6-23)
[2016-06-12 04:36] LABS: CALCIUM, SERUM 8.3 MG/DL (8.5-10.4); CHLORIDE, SERUM 100 MMOL/L (96-112); CO2 (CARBON DIOXIDE) 21 MMOL/L (24-34); CREATININE 2.56 MG/DL (0.55-1.02); GFR AFRICAN AMERICAN 20 ML/MIN (>=60); GFR NON AFRICAN AMERICAN 17 ML/MIN (>=60); GLUCOSE, SERUM 114 MG/DL (60-99); POTASSIUM, SERUM 4.3 MMOL/L (3.5-5.3); SODIUM, SERUM 135 MMOL/L (135-148)
[2016-06-12 04:37] LABS: ALBUMIN 3.9 G/DL (3.5-5.0); BUN (BLOOD UREA NITROGEN) 57 MG/DL (6-23); PHOSPHORUS, SERUM 5.7 MG/DL (2.5-4.5)
[2016-06-12 04:49] LABS: BASOPHILS 0 %; EOSINOPHILS 0 %; HEMATOCRIT 26.2 % (36.0-48.0); HEMOGLOBIN 8.6 g/dL (12.0-16.0); IMMATURE GRANULOCYTES 0.2 %; IMMATURE GRANULOCYTES ABSOLUTE 0.03 10/3/uL (0.0-0.11); LYMPHOCYTES 6.5 %; LYMPHOCYTES ABSOLUTE 0.86 10/3/uL (0.67-4.30); MEAN CORPUS HGB CONC 32.8 g/dL (32.0-36.0); MEAN CORPUSCULAR HEMOGLOB 29.9 pg (26.0-34.0); MEAN PLATELET VOLUME 10.4 fL (9.2-13.0); MONOCYTES 5.8 %; MONOCYTES ABSOLUTE 0.77 10/3/uL (0.21-1.20); NEUTROPHILS 87.5 %; NEUTROPHILS ABSOLUTE 11.51 10/3/uL (2.02-8.40); PLATELET COUNT 172 10/3/uL (150-400); RBC DISTRIBUTION WIDTH 17.1 % (12.0-16.0); RED CELL COUNT 2.88 10/6/uL (4.0-5.6); WHITE BLOOD CELLS 13.2 10/3/uL (4.5-10.5)
[2016-06-12 04:50] LABS: MANUAL DIFF NO %
[2016-06-12 10:04] LABS: CK-MB 5.4 NG/ML
[2016-06-12 10:05] LABS: CKMB INDEX (NOT ORD) 2.3; CPK 234 U/L (0-200)
[2016-06-12 12:04] LABS: POTASSIUM, SERUM 4.2 MMOL/L (3.5-5.3)
[2016-06-12 18:24] LABS: POTASSIUM, SERUM 4.2 MMOL/L (3.5-5.3)
[2016-06-13 04:07] LABS: BASOPHILS 0 %; EOSINOPHILS 0 %; HEMATOCRIT 24.9 % (36.0-48.0); HEMOGLOBIN 8.3 g/dL (12.0-16.0); IMMATURE GRANULOCYTES 0.6 %; IMMATURE GRANULOCYTES ABSOLUTE 0.07 10/3/uL (0.0-0.11); LYMPHOCYTES 3.2 %; LYMPHOCYTES ABSOLUTE 0.37 10/3/uL (0.67-4.30); MANUAL DIFF NO %; MEAN CORPUS HGB CONC 33.3 g/dL (32.0-36.0); MEAN CORPUSCULAR HEMOGLOB 30.2 pg (26.0-34.0); MEAN CORPUSCULAR VOLUME 90.5 fL (80-100); MEAN PLATELET VOLUME 9.7 fL (9.2-13.0); MONOCYTES 8.6 %; MONOCYTES ABSOLUTE 0.99 10/3/uL (0.21-1.20); NEUTROPHILS 87.6 %; NEUTROPHILS ABSOLUTE 10.13 10/3/uL (2.02-8.40); PLATELET COUNT 191 10/3/uL (150-400); RBC DISTRIBUTION WIDTH 16.8 % (12.0-16.0); RED CELL COUNT 2.75 10/6/uL (4.0-5.6); WHITE BLOOD CELLS 11.6 10/3/uL (4.5-10.5)
[2016-06-13 04:17] LABS: CALCIUM, SERUM 8.1 MG/DL (8.5-10.4); CHLORIDE, SERUM 99 MMOL/L (96-112); CO2 (CARBON DIOXIDE) 22 MMOL/L (24-34); CREATININE 2.36 MG/DL (0.55-1.02); GFR AFRICAN AMERICAN 22 ML/MIN (>=60); GFR NON AFRICAN AMERICAN 19 ML/MIN (>=60); GLUCOSE, SERUM 106 MG/DL (60-99); POTASSIUM, SERUM 4.4 MMOL/L (3.5-5.3); SODIUM, SERUM 134 MMOL/L (135-148)
[2016-06-13 04:18] LABS: BUN (BLOOD UREA NITROGEN) 65 MG/DL (6-23)
[2016-06-14 03:36] LABS: BASOPHILS 0.1 %; BASOPHILS ABSOLUTE 0.01 10/3/uL (0.0-0.16); EOSINOPHILS 0 %; HEMATOCRIT 24.5 % (36.0-48.0); HEMOGLOBIN 8.3 g/dL (12.0-16.0); IMMATURE GRANULOCYTES 0.3 %; IMMATURE GRANULOCYTES ABSOLUTE 0.03 10/3/uL (0.0-0.11); LYMPHOCYTES 6.2 %; MEAN CORPUS HGB CONC 33.9 g/dL (32.0-36.0); MEAN CORPUSCULAR HEMOGLOB 30.9 pg (26.0-34.0); MEAN CORPUSCULAR VOLUME 91.1 fL (80-100); MEAN PLATELET VOLUME 9.8 fL (9.2-13.0); MONOCYTES 6.7 %; MONOCYTES ABSOLUTE 0.65 10/3/uL (0.21-1.20); NEUTROPHILS 86.7 %; NEUTROPHILS ABSOLUTE 8.44 10/3/uL (2.02-8.40); PLATELET COUNT 231 10/3/uL (150-400); RBC DISTRIBUTION WIDTH 17.1 % (12.0-16.0); RED CELL COUNT 2.69 10/6/uL (4.0-5.6); WHITE BLOOD CELLS 9.7 10/3/uL (4.5-10.5)
[2016-06-14 03:38] LABS: MANUAL DIFF NO %
[2016-06-14 03:47] LABS: BUN (BLOOD UREA NITROGEN) 70 MG/DL (6-23); CALCIUM, SERUM 8.1 MG/DL (8.5-10.4); CHLORIDE, SERUM 100 MMOL/L (96-112); CO2 (CARBON DIOXIDE) 26 MMOL/L (24-34); GFR AFRICAN AMERICAN 25 ML/MIN (>=60); GFR NON AFRICAN AMERICAN 21 ML/MIN (>=60); GLUCOSE, SERUM 144 MG/DL (60-99); POTASSIUM, SERUM 4.1 MMOL/L (3.5-5.3); SODIUM, SERUM 139 MMOL/L (135-148)
[2016-06-14 09:39] LABS: POTASSIUM, SERUM 3.9 MMOL/L (3.5-5.3)
[2016-06-14 12:32] LABS: ULTRASENSITIVE TSH 1.29 MCIU/ML (0.358-3.740)
[2016-06-15 07:19] LABS: BASOPHILS 0.1 %; BASOPHILS ABSOLUTE 0.02 10/3/uL (0.0-0.16); EOSINOPHILS 0 %; EOSINOPHILS ABSOLUTE 0.01 10/3/uL (0.0-0.53); HEMOGLOBIN 9.6 g/dL (12.0-16.0); IMMATURE GRANULOCYTES 0.6 %; IMMATURE GRANULOCYTES ABSOLUTE 0.14 10/3/uL (0.0-0.11); LYMPHOCYTES 5.8 %; LYMPHOCYTES ABSOLUTE 1.42 10/3/uL (0.67-4.30); MEAN CORPUS HGB CONC 32.7 g/dL (32.0-36.0); MEAN CORPUSCULAR HEMOGLOB 29.6 pg (26.0-34.0); MEAN CORPUSCULAR VOLUME 90.7 fL (80-100); MEAN PLATELET VOLUME 9.8 fL (9.2-13.0); MONOCYTES 5.8 %; MONOCYTES ABSOLUTE 1.43 10/3/uL (0.21-1.20); NEUTROPHILS 87.7 %; NEUTROPHILS ABSOLUTE 21.59 10/3/uL (2.02-8.40); RBC DISTRIBUTION WIDTH 17.1 % (12.0-16.0)
[2016-06-15 07:27] LABS: HEMATOCRIT 29.4 % (36.0-48.0); PLATELET COUNT 383 10/3/uL (150-400); RED CELL COUNT 3.24 10/6/uL (4.0-5.6); WHITE BLOOD CELLS 24.6 10/3/uL (4.5-10.5)
[2016-06-15 07:30] LABS: MANUAL DIFF NO %
[2016-06-15 07:40] LABS: CHLORIDE, SERUM 96 MMOL/L (96-112); CO2 (CARBON DIOXIDE) 22 MMOL/L (24-34); CREATININE 2.04 MG/DL (0.55-1.02); GFR AFRICAN AMERICAN 26 ML/MIN (>=60); GFR NON AFRICAN AMERICAN 22 ML/MIN (>=60); GLUCOSE, SERUM 145 MG/DL (60-99); POTASSIUM, SERUM 3.8 MMOL/L (3.5-5.3)
[2016-06-15 07:41] LABS: BUN (BLOOD UREA NITROGEN) 76 MG/DL (6-23); SODIUM, SERUM 132 MMOL/L (135-148)
[2016-06-15 07:56] LABS: ANISOCYTOSIS 1+ (5-10/OIF) (0-5/OIF); BAND NEUTROPHILS 20 %; LYMPHOCYTES 7 %; LYMPHOCYTES ABSOLUTE (CALC) 1.72 10/3/uL (0.67-4.30); MACROCYTES 1+ (5-10/OIF) (0-5/OIF); MONOCYTES 3 %; MONOCYTES ABSOLUTE (CALC) 0.74 10/3/uL (0.21-1.20); NEUTROPHILS ABSOLUTE (CALC) 22.14 10/3/uL (2.02-8.40); PLATELET ESTIMATE ADQ (ADEQUATE); POLYCHROMASIA 1+ (2-5/OIF) (0-1/OIF); SEGMENTED NEUTROPHIL (0) 70 %; TOTAL NUCLEATED CELLS 100
[2016-06-15 16:13] LABS: ASCORBIC ACID (UR NOT ORDER) 40 (NEG); BILIRUBIN, URINE NEGATIVE (NEG); KETONE, URINE NEGATIVE (NEG); LEUKOCYTE ESTERASE(NOT OR LARGE (NEG)
[2016-06-15 16:14] LABS: WBC (NOT ORDERED) (RFLEX) > 182 (0-5)
[2016-06-15 17:12] LABS: ALLENS TEST Pos; BE (BASE EXCESS) -0.6 MEQ/L (0 +/- 2.5); CARBOXYHEMOGLOBIN 0.9 % (0-3); HCO3 (ACTUAL BICARBONATE) 20.1 MEQ/L (23-27); HEMOBLOGIN CONTENT 10.6 G/DL (12-16); INSTRUMENT SERIAL # 35151; METHEMOGLOBIN 0.1 % (0-3); O2 CONTENT 13.6 VOL% (18-24); PCO2 (CO2 TENSION) 22 MMHG (35-45); PO2 (O2 TENSION) 61 MMHG (79-93); SAMPLE Arterial; pH 7.57 (7.37-7.43)
[2016-06-15 17:50] LABS: HEMATOCRIT 29.4 % (36.0-48.0); HEMOGLOBIN 9.7 g/dL (12.0-16.0)
[2016-06-15 19:13] LABS: HEMATOCRIT 27.2 % (36.0-48.0); HEMOGLOBIN 8.7 g/dL (12.0-16.0); MEAN CORPUSCULAR HEMOGLOB 29.3 pg (26.0-34.0); MEAN CORPUSCULAR VOLUME 91.6 fL (80-100); MEAN PLATELET VOLUME 9.9 fL (9.2-13.0); NUCLEATED RED BLOOD CELLS 0.4 /100WBC (0-0); PLATELET COUNT 383 10/3/uL (150-400); RBC DISTRIBUTION WIDTH 17.4 % (12.0-16.0); RED CELL COUNT 2.97 10/6/uL (4.0-5.6); WHITE BLOOD CELLS 23.5 10/3/uL (4.5-10.5)
[2016-06-15 19:14] LABS: MANUAL DIFF YES %
[2016-06-15 19:26] LABS: BE (BASE EXCESS) -11.1 MEQ/L (0 +/- 2.5); CARBOXYHEMOGLOBIN 1.2 % (0-3); HCO3 (ACTUAL BICARBONATE) 16.4 MEQ/L (23-27); HEMOBLOGIN CONTENT 9.5 G/DL (12-16); INSTRUMENT SERIAL # 11843; METHEMOGLOBIN 0.3 % (0-3); O2 CONTENT 11.4 VOL% (18-24); OPERATOR ID 23712; PCO2 (CO2 TENSION) 44 MMHG (35-45); PO2 (O2 TENSION) 67 MMHG (79-93); SAMPLE Arterial; pH 7.19 (7.37-7.43)
[2016-06-15 19:27] LABS: A/G RATIO 1.2 (0.7-1.9); ALBUMIN 3.2 G/DL (3.5-5.0); CALCIUM, SERUM 8.6 MG/DL (8.5-10.4); CHLORIDE, SERUM 95 MMOL/L (96-112); CO2 (CARBON DIOXIDE) 20 MMOL/L (24-34); CREATININE 2.52 MG/DL (0.55-1.02); GFR AFRICAN AMERICAN 20 ML/MIN (>=60); GFR NON AFRICAN AMERICAN 17 ML/MIN (>=60); GLOBULIN 2.7 G/DL (2.5-4.1); SGOT(AST) 65 U/L (5-40); SGPT(ALT) 26 U/L (5-65); SODIUM, SERUM 131 MMOL/L (135-148); TOTAL PROTEIN 5.9 G/DL (6.0-8.5)
[2016-06-15 19:28] LABS: ALKALINE PHOSPHATASE 158 U/L (45-117); BUN (BLOOD UREA NITROGEN) 82 MG/DL (6-23); GLUCOSE, SERUM 80 MG/DL (60-99); TOTAL BILIRUBIN 1.2 MG/DL (0-1.2)
[2016-06-15 20:36] LABS: BAND NEUTROPHILS 4 %; BASOPHILS 1 %; BASOPHILS ABSOLUTE (CALC) 0.24 10/3/uL (0.0-0.16); IMMATURE GRANS ABSOLUTE (CALC) 0.24 10/3/uL (0.0-0.11); LYMPHOCYTES 2 %; LYMPHOCYTES ABSOLUTE (CALC) 0.47 10/3/uL (0.67-4.30); METAMYELOCYTES 1 %; MONOCYTES 5 %; MONOCYTES ABSOLUTE (CALC) 1.18 10/3/uL (0.21-1.20); NEUTROPHILS ABSOLUTE (CALC) 21.39 10/3/uL (2.02-8.40); SEGMENTED NEUTROPHIL (0) 87 %; TOTAL NUCLEATED CELLS 100
[2016-06-15 20:37] LABS: ANISOCYTOSIS 1+ (5-10/OIF) (0-5/OIF); PLATELET ESTIMATE ADQ (ADEQUATE); TOXIC GRANULATION SLT
[2016-06-15 20:40] LABS: PARTIAL THROMBO TIME 114.2 SEC (22.5-37.2); PROTIME (NOT ORD) 22.2 SEC (12.0-14.5)
[2016-06-15 20:41] LABS: BUN (BLOOD UREA NITROGEN) 82 MG/DL (6-23); CHLORIDE, SERUM 94 MMOL/L (96-112); CO2 (CARBON DIOXIDE) 22 MMOL/L (24-34); CREATININE 2.73 MG/DL (0.55-1.02); GFR AFRICAN AMERICAN 18 ML/MIN (>=60); GFR NON AFRICAN AMERICAN 16 ML/MIN (>=60); POTASSIUM, SERUM 5.9 MMOL/L (3.5-5.3); SODIUM, SERUM 135 MMOL/L (135-148)
[2016-06-15 20:42] LABS: CALCIUM, SERUM 9.8 MG/DL (8.5-10.4); GLUCOSE, SERUM 50 MG/DL (60-99); HEMATOCRIT 25.9 % (36.0-48.0); HEMOGLOBIN 8.2 g/dL (12.0-16.0); MEAN CORPUS HGB CONC 31.7 g/dL (32.0-36.0); MEAN CORPUSCULAR HEMOGLOB 29.4 pg (26.0-34.0); MEAN CORPUSCULAR VOLUME 92.8 fL (80-100); MEAN PLATELET VOLUME 10.2 fL (9.2-13.0); NUCLEATED RED BLOOD CELLS 0.7 /100WBC (0-0); PHOSPHORUS, SERUM 8.8 MG/DL (2.5-4.5); PLATELET COUNT 356 10/3/uL (150-400); RBC DISTRIBUTION WIDTH 17.3 % (12.0-16.0); RED CELL COUNT 2.79 10/6/uL (4.0-5.6); WHITE BLOOD CELLS 18.8 10/3/uL (4.5-10.5)
[2016-06-15 20:44] LABS: MANUAL DIFF YES %
[2016-06-15 21:12] LABS: BE (BASE EXCESS) -8.6 MEQ/L (0 +/- 2.5); CARBOXYHEMOGLOBIN 1.9 % (0-3); HCO3 (ACTUAL BICARBONATE) 17.9 MEQ/L (23-27); HEMOBLOGIN CONTENT 8.1 G/DL (12-16); INSTRUMENT SERIAL # 11843; METHEMOGLOBIN 0.3 % (0-3); MODE CMV; O2 CONTENT 10.2 VOL% (18-24); OPERATOR ID 13744; PCO2 (CO2 TENSION) 41 MMHG (35-45); PO2 (O2 TENSION) 75 MMHG (79-93); SAMPLE Arterial; TIDAL VOLUME 400 ML; pH 7.26 (7.37-7.43)
[2016-06-15 21:57] LABS: ANISOCYTOSIS 1+ (5-10/OIF) (0-5/OIF); BAND NEUTROPHILS 5 %; LYMPHOCYTES 13 %; LYMPHOCYTES ABSOLUTE (CALC) 2.44 10/3/uL (0.67-4.30); MONOCYTES 1 %; MONOCYTES ABSOLUTE (CALC) 0.19 10/3/uL (0.21-1.20); NEUTROPHILS ABSOLUTE (CALC) 16.17 10/3/uL (2.02-8.40); PLATELET ESTIMATE ADQ (ADEQUATE); POIKILOCYTOSIS 1+ (5-10/OIF) (0-5/OIF); SEGMENTED NEUTROPHIL (0) 81 %; TOTAL NUCLEATED CELLS 100; TOXIC GRANULATION SLT
[2016-06-15 23:43] LABS: INSTRUMENT SERIAL # 11843; PCO2 (CO2 TENSION) 31 MMHG (35-45); PO2 (O2 TENSION) 66 MMHG (79-93); pH 7.31 (7.37-7.43)
[2016-06-15 23:44] LABS: CARBOXYHEMOGLOBIN 2.8 % (0-3); HCO3 (ACTUAL BICARBONATE) 15.2 MEQ/L (23-27); HEMOBLOGIN CONTENT 8.5 G/DL (12-16); METHEMOGLOBIN 0.3 % (0-3); MODE CMV; O2 CONTENT 10.3 VOL% (18-24); OPERATOR ID 13744; SAMPLE Arterial; TIDAL VOLUME 400 ML
[2016-06-16 00:02] LABS: A/G RATIO 1.1 (0.7-1.9); ALBUMIN 2.6 G/DL (3.5-5.0); BUN (BLOOD UREA NITROGEN) 82 MG/DL (6-23); CHLORIDE, SERUM 96 MMOL/L (96-112); CO2 (CARBON DIOXIDE) 19 MMOL/L (24-34); CREATININE 2.75 MG/DL (0.55-1.02); GFR AFRICAN AMERICAN 18 ML/MIN (>=60); GFR NON AFRICAN AMERICAN 15 ML/MIN (>=60); GLOBULIN 2.3 G/DL (2.5-4.1); POTASSIUM, SERUM 5.9 MMOL/L (3.5-5.3); SGOT(AST) 2067 U/L (5-40); SGPT(ALT) 958 U/L (5-65); SODIUM, SERUM 135 MMOL/L (135-148); TOTAL PROTEIN 4.9 G/DL (6.0-8.5)
[2016-06-16 00:03] LABS: ALKALINE PHOSPHATASE 227 U/L (45-117); CALCIUM, SERUM 8.5 MG/DL (8.5-10.4); GLUCOSE, SERUM 26 MG/DL (60-99); PHOSPHORUS, SERUM 7.8 MG/DL (2.5-4.5); TOTAL BILIRUBIN 2.1 MG/DL (0-1.2)
[2016-06-16 03:13] LABS: BE (BASE EXCESS) -14.7 MEQ/L (0 +/- 2.5); CARBOXYHEMOGLOBIN 5.2 % (0-3); HCO3 (ACTUAL BICARBONATE) 12.4 MEQ/L (23-27); HEMOBLOGIN CONTENT 7.2 G/DL (12-16); INSTRUMENT SERIAL # 11843; METHEMOGLOBIN 0.1 % (0-3); MODE CMV; O2 CONTENT 8.5 VOL% (18-24); OPERATOR ID 23712; PCO2 (CO2 TENSION) 34 MMHG (35-45); PO2 (O2 TENSION) 70 MMHG (79-93); SAMPLE Arterial; pH 7.18 (7.37-7.43)
[2016-06-16 03:14] LABS: TIDAL VOLUME 380 ML
[2016-06-16 03:57] LABS: PARTIAL THROMBO TIME 64.2 SEC (22.5-37.2)
[2016-06-16 04:17] LABS: ALKALINE PHOSPHATASE 222 U/L (45-117); CALCIUM, SERUM 7.9 MG/DL (8.5-10.4); CHLORIDE, SERUM 97 MMOL/L (96-112); CO2 (CARBON DIOXIDE) 22 MMOL/L (24-34); CREATININE 2.34 MG/DL (0.55-1.02); GFR AFRICAN AMERICAN 22 ML/MIN (>=60); GFR NON AFRICAN AMERICAN 19 ML/MIN (>=60); PHOSPHORUS, SERUM 8.4 MG/DL (2.5-4.5); POTASSIUM, SERUM 5.7 MMOL/L (3.5-5.3); SGOT(AST) 6465 U/L (5-40); SGPT(ALT) 2639 U/L (5-65); TOTAL BILIRUBIN 1.8 MG/DL (0-1.2)
[2016-06-16 04:20] LABS: A/G RATIO 1.1 (0.7-1.9); ALBUMIN 1.9 G/DL (3.5-5.0); BUN (BLOOD UREA NITROGEN) 64 MG/DL (6-23); GLOBULIN 1.8 G/DL (2.5-4.1); GLUCOSE, SERUM 144 MG/DL (60-99); SODIUM, SERUM 144 MMOL/L (135-148); TOTAL PROTEIN 3.7 G/DL (6.0-8.5)
[2016-06-16 05:09] LABS: BE (BASE EXCESS) -16.2 MEQ/L (0 +/- 2.5); CARBOXYHEMOGLOBIN 5.7 % (0-3); HCO3 (ACTUAL BICARBONATE) 11.8 MEQ/L (23-27); HEMOBLOGIN CONTENT 6.5 G/DL (12-16); INSTRUMENT SERIAL # 11843; MODE CMV; O2 CONTENT 7.6 VOL% (18-24); OPERATOR ID 13744; PCO2 (CO2 TENSION) 38 MMHG (35-45); PO2 (O2 TENSION) 72 MMHG (79-93); SAMPLE Arterial; TIDAL VOLUME 380 ML; pH 7.11 (7.37-7.43)
[2016-06-16 05:45] LABS: INDIRECT BILIRUBIN(NOT ORDER) 0.8 MG/DL (0.1-0.9)
[2016-06-16 06:05] LABS: INTERNATIONAL NORMAL RATI 4.7 UNITS (-)
[2016-06-16 06:10] LABS: PROTIME (NOT ORD) 43.8 SEC (12.0-14.5)
== END 2016-06-16 09:10 | disposition expired | DRG 233 ==
LOC: ER 13:57 → 6NO 14:18 → SDC/OF 06-06 18:43 → CCU 06-06 20:09 → CVICU 06-09 12:08 → 5NO 06-14 12:21 → CVICU 06-15 17:56
PROVIDERS: Anesthesiology; Emergency Medicine; Internal Medicine Cardiovascular Disease; Internal Medicine Nephrology; Internal Medicine Pulmonary Disease; Nurse Practitioner Family; Thoracic Surgery (Cardiothoracic Vascular Surgery)
PROC: 30233N1 Transfusion of Nonautologous Red Blood Cells into Peripheral Vein, Percutaneous Approach (ICD-10-PCS; 2016-06-05)
PROC: 4A023N7 Measurement of Cardiac Sampling and Pressure, Left Heart, Percutaneous Approach (ICD-10-PCS; principal; 2016-06-06)
PROC: B2111ZZ Fluoroscopy of Multiple Coronary Arteries using Low Osmolar Contrast (ICD-10-PCS; 2016-06-06)
PROC: 021009W Bypass Coronary Artery, One Artery from Aorta with Autologous Venous Tissue, Open Approach (ICD-10-PCS; 2016-06-06)
PROC: B2151ZZ Fluoroscopy of Left Heart using Low Osmolar Contrast (ICD-10-PCS; 2016-06-06)
PROC: 0210099 Bypass Coronary Artery, One Artery from Left Internal Mammary with Autologous Venous Tissue, Open Approach (ICD-10-PCS; 2016-06-06)
PROC: 0PH000Z Insertion of Rigid Plate Internal Fixation Device into Sternum, Open Approach (ICD-10-PCS; 2016-06-09)
PROC: 5A1221Z Performance of Cardiac Output, Continuous (ICD-10-PCS; 2016-06-09)
PROC: B246ZZ4 Ultrasonography of Right and Left Heart, Transesophageal (ICD-10-PCS; 2016-06-09)
PROC: 06BP4ZZ Excision of Right Saphenous Vein, Percutaneous Endoscopic Approach (ICD-10-PCS; 2016-06-09 08:30)
PROC: B544ZZA Ultrasonography of Left Jugular Veins, Guidance (ICD-10-PCS; 2016-06-15)
PROC: 05HN33Z Insertion of Infusion Device into Left Internal Jugular Vein, Percutaneous Approach (ICD-10-PCS; 2016-06-15)
PROC: 02HV33Z Insertion of Infusion Device into Superior Vena Cava, Percutaneous Approach (ICD-10-PCS; 2016-06-15)
PROC: 4A02X4A Measurement of Cardiac Electrical Activity, Guidance, External Approach (ICD-10-PCS; 2016-06-15)
PROC: 5A1D00Z (ICD-10-PCS; 2016-06-15)
DX: I21.4 Non-ST elevation (NSTEMI) myocardial infarction (principal); N17.0 Acute kidney failure with tubular necrosis; R65.21 Severe sepsis with septic shock; J95.821 Acute postprocedural respiratory failure; A41.9 Sepsis, unspecified organism; I97.89 Other postprocedural complications and disorders of the circulatory system, not elsewhere classified; I48.2 Chronic atrial fibrillation; I50.9 Heart failure, unspecified; M06.9 Rheumatoid arthritis, unspecified; I10 Essential (primary) hypertension; J40 Bronchitis, not specified as acute or chronic; I44.30 Unspecified atrioventricular block; I25.10 Atherosclerotic heart disease of native coronary artery without angina pectoris; Z79.01 Long term (current) use of anticoagulants; Z79.899 Other long term (current) drug therapy; Z79.52 Long term (current) use of systemic steroids; Z86.718 Personal history of other venous thrombosis and embolism; Z88.1 Allergy status to other antibiotic agents; Z79.82 Long term (current) use of aspirin; E87.70 Fluid overload, unspecified
CPT/HCPCS: 31720; 36415; 36569; 36600; 71010; 71020; 71275; 74000; 78452; 80048; 80053; 80061; 80069; 81001; 82248; 82330; 82530; 82550; 82553; 82803; 82805; 82947; 82962; 83036; 83540; 83550; 83605; 83735; 83880; 84100; 84132; 84145; 84295; 84443; 84460; 84484; 85014; 85018; 85025; 85049; 85347; 85379; 85384; 85610; 85730; 86850; 86900; 86901; 86902; 86920; 86922; 87040; 87077; 87086; 87150; 87186; 87641; 92950; 93005; 93017; 93312; 93320; 93325; 93458; 93880; 94002; 94640; 94660; 94668; 94770; 96374; 96375; 97162-GP; 97166-GO; 99152; 99153; 99291; A9270-GY; A9502; C1713; C1751; C1752; C1760; C1769; C1894; C8929; G0365; G8978-CL-GP; G8979-CJ-GP; J0282; J0330; J0610; J0690; J0692; J1205; J1450; J1644; J1720; J1940; J2150; J2185; J2250; J2370; J2405; J2440; J2550; J2720; J2930; J3010; J3370; J3475; J3480; P9016; P9045; P9047; Q9957; Q9967